=== PATIENT | male | born 1940 | race Native Hawaiian/Other Pacific Islander ===

== ENCOUNTER 2017-08-22 13:40 | Outpatient (CLI) | payer OTHER ==
[2017-08-22 14:40] LABS: POTASSIUM 3.9 mmol/L (3.6-5.2); SODIUM 131 mmol/L (136-145)
== END 2017-08-22 14:40 | disposition home or self-care (01) ==
LOC: LAB 13:40
PROVIDERS: Family Medicine
DX: I10 Essential (primary) hypertension (principal); M62.81 Muscle weakness (generalized); Z12.5 Encounter for screening for malignant neoplasm of prostate; G25.2 Other specified forms of tremor; R97.20 Elevated prostate specific antigen [PSA]
CPT/HCPCS: 80053; 80061; 84153; 84436; 84443; 84480